=== PATIENT | male | born 1950 | race Two or more races ===

== ENCOUNTER 2025-01-03 21:28 | Emergency (ER) | payer BC ==
[~2025-01-03] VITALS: Ht 172.7 cm; Wt 113.4 kg
[2025-01-03] MEDS ORDERED: NEURONTIN300 MG (22:30)
[2025-01-03] MEDS ORDERED: CLONAZEPAM1 M1 (22:30)
[2025-01-03] MEDS ORDERED: SEROQUEL25 MG (22:31)
== END 2025-01-03 23:50 | disposition home or self-care (01) ==
LOC: ER 21:29
DX: M79.672 Pain in left foot (principal); G89.11 Acute pain due to trauma; E03.8 Other specified hypothyroidism; Z88.5 Allergy status to narcotic agent